=== PATIENT | female | born 1960 | race Caucasian/White ===

== ENCOUNTER 2023-07-03 06:43 | Day surgery (SDC) | payer OTHER ==
[~2023-07-03] VITALS: Ht 165.1 cm; Wt 81.8 kg
[2023-07-03] MEDS ORDERED: LIDOCAINE 2% 11 ML JELLY TP ONE (06:44)
[2023-07-03] MEDS ORDERED: LIDOCAINE 4% 50 ML SOLUTION TP ONE (06:44)
[2023-07-03] MEDS ORDERED: ALBUTEROL SULFATE 2.5 MG/0.5 ML NEB SOLUTION NEB ONE (06:44)
[2023-07-03] MEDS ORDERED: BENZOCAINE 20% 50 MCG/SPRAY 57 GM TP ONE (06:44)
[2023-07-03] MEDS ORDERED: SODIUM CHLORIDE 0.9% 1,000 ML ONE (06:49)
[2023-07-03] MEDS ORDERED: SODIUM CHLORIDE 0.9% 1,000 ML IV ONE (07:00)
[2023-07-03] MEDS ORDERED: MIDAZOLAM HCL 2 MG/2 ML VIAL ONE (07:38)
[2023-07-03] MEDS ORDERED: FentaNYL CITRATE PF 100 MCG/2 ML VIAL ONE (07:38)
[2023-07-03] MEDS ORDERED: BUPR-344 PO (09:13)
[2023-07-03] MEDS ORDERED: HYDR25TA2 PO (09:13)
[2023-07-03] MEDS ORDERED: MethylPREDNISolone SOD SUCC 125 MG/2 ML VIAL IVP ONE (09:30)
== END 2023-07-03 10:50 | disposition home or self-care (01) ==
LOC: SURGERY 06:43
PROVIDERS: ATTEND Internal Medicine Critical Care Medicine
DX: R05.3 Chronic cough (principal); Z53.8 Procedure and treatment not carried out for other reasons; R91.1 Solitary pulmonary nodule; J98.09 Other diseases of bronchus, not elsewhere classified; Z79.899 Other long term (current) drug therapy
CPT/HCPCS: Q9967; J7030; J2250; J3010

== ENCOUNTER 2023-10-14 06:52 | Day surgery (SDC) | payer OTHER ==
[~2023-10-14] VITALS: Ht 165.1 cm; Wt 81.1 kg
[~2023-10-14 06:52] MED LIST: BUPR-344 PO; HYDR25TA2 PO
[2023-10-14] MEDS ORDERED: LIDOCAINE 4% 50 ML SOLUTION TP ONE (06:53)
[2023-10-14] MEDS ORDERED: LIDOCAINE 2% 11 ML JELLY TP ONE (06:53)
[2023-10-14] MEDS ORDERED: BENZOCAINE 20% 50 MCG/SPRAY 57 GM TP ONE (06:53)
[2023-10-14] MEDS ORDERED: SODIUM CHLORIDE 0.9% 1,000 ML ONE (07:36)
[2023-10-14] MEDS ORDERED: SODIUM CHLORIDE 0.9% 1,000 ML IV ONE (08:00)
[2023-10-14] MEDS ORDERED: SODIUM TETRADECYL SULFATE 3% 60 MG/2 ML VIAL IVP ONE (08:34)
[2023-10-14] MEDS ORDERED: ATROPINE SULFATE 0.1 MG/ML 10 ML SYRINGE IVP ONE (08:34)
[2023-10-14] MEDS ORDERED: DiphenhydrAMINE HCL 50 MG/ML VIAL ONE (08:34)
[2023-10-14] MEDS ORDERED: EPINEPHrine 1:10,000 [1 MG/10 ML] SYRINGE ONE (08:34)
[2023-10-14] MEDS ORDERED: FLUMAZENIL 0.1 MG/ML 5 ML VIAL IVP ONE (08:34)
[2023-10-14] MEDS ORDERED: NALOXONE HCL 0.4 MG/ML VIAL ONE (08:34)
[2023-10-14] MEDS ORDERED: FentaNYL CITRATE PF 100 MCG/2 ML VIAL ONE (08:35)
[2023-10-14] MEDS ORDERED: MIDAZOLAM HCL 2 MG/2 ML VIAL ONE (08:35)
[2023-10-14 08:55] VITALS: PULSE 82; RESP 19; O2SAT 100
[2023-10-14] MEDS ORDERED: MethylPREDNISolone SOD SUCC 125 MG/2 ML VIAL IVP ONE (09:00)
[2023-10-14] MEDS ORDERED: MethylPREDNISolone SOD SUCC 125 MG/2 ML VIAL ONE (09:16)
== END 2023-10-14 11:02 | disposition home or self-care (01) ==
LOC: SURGERY 06:52
PROVIDERS: ATTEND Internal Medicine Critical Care Medicine
DX: J38.4 Edema of larynx (principal); B37.0 Candidal stomatitis; I10 Essential (primary) hypertension; Z79.899 Other long term (current) drug therapy
CPT/HCPCS: 31623; 88112; 87206; 87101; 87220; 87070; 88305; 87186; 31624; 71045; 87015; J0461; J1200; J0171; J3010; J3490; J2250; J2930; J2310; Q9967; J7030; Z7610